=== PATIENT | male | born 1995 | race Caucasian/White ===

== ENCOUNTER 2019-12-13 11:03 | Emergency (ER) | payer OTHER ==
[2019-12-13] MEDS ORDERED: TYLENOL 325 MG PO STA (11:30)
[2019-12-13] MEDS ORDERED: TYLENOL 325 MG ONE (11:34)
[2019-12-13 11:38] VITALS: O2SAT 98
--- NOTE | 2019-12-13 11:38 | ERPHSYRPT ---
- History of Present Illness Time Seen by Provider: 12/13/19 11:20 Source: patient, police Exam Limitations: no limitations Patient Subjective Stated Complaint: pt here for a seizure at the halfway, he states last seizure was a month ago and he has never seen a doc for hes seizures , pt co pain to head, which he stated happend before the seizure, he gets fregquent headaches, Triage Nursing Assessment: pt alert and oreinted , resp easy, skin w/d/p.moves all ext well, no edema, he states he is fine and wants to go back to halfway Physician History: 24 y/o white male resident in local halfway with h/o untreated seizures, presents with second seizure in a month. pt denies illicit drug intake, denies acute head trauma. pt denies loss of bowel or bladder control Timing/Duration: today Severity: mild Character of Deficits: none Deficits: no difficulties Baseline/Normal Cognition: alert 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 Current Cognition: alert 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 Baseline Gait: walks w/o assistance Associated Symptoms: seizures Allergies/Adverse Reactions: No Known Drug Allergies Allergy (Unverified 12/13/19 11:11) Hx Influenza Vaccination/Date Given: No Hx Pneumococcal Vaccination/Date Given: No Immunizations Up to Date: Yes - Review of Systems Constitutional: No Symptoms Eyes: No Symptoms Ears, Nose, & Throat: No Symptoms Respiratory: No Symptoms Cardiac: No Symptoms Abdominal/Gastrointestinal: No Symptoms Genitourinary Symptoms: No Symptoms Musculoskeletal: No Symptoms Skin: No Symptoms Neurological: Headache, Seizure Psychological: No Symptoms Endocrine: No Symptoms Hematologic/Lymphatic: No Symptoms Immunological/Allergic: No Symptoms All Other Systems: Reviewed and Negative - Past Medical History Pertinent Past Medical History: Yes Neurological History: Seizures ENT History: No Pertinent History Cardiac History: No Pertinent History Respiratory History: No Pertinent History Endocrine Medical History: No Pertinent History Musculoskeletal History: No Pertinent History GI Medical History: No Pertinent History History: No Pertinent History Psycho-Social History: No Pertinent History Male Reproductive Disorders: No Pertinent History - Past Surgical History Past Surgical History: No Neuro Surgical History: No Pertinent History Cardiac: No Pertinent History Respiratory: No Pertinent History Gastrointestinal: No Pertinent History Genitourinary: No Pertinent History Musculoskeletal: No Pertinent History Male Surgical History: No Pertinent History - Social History Smoking Status: Current every day smoker Exposure to second hand smoke: Yes Drug Use: none Patient Lives Alone: No - Nursing Vital Signs Nursing Vital Signs: Initial Vital Signs Temperature 98.2 F 12/13/19 11:04 Pulse Rate 101 H 12/13/19 11:04 Respiratory Rate 16 12/13/19 11:04 Blood Pressure 130/94 12/13/19 11:04 O2 Sat by Pulse Oximetry 98 12/13/19 11:04 Pain Scale Pain Intensity 7 - Cord Coma Scale Best Eye Response (Cord): (4) open spontaneously Best Verbal Response (Claudia): (5) oriented Best Motor Response (Cord): (6) obeys commands Claudia Total: 15 - Physical Exam General Appearance: no apparent distress Eye Exam: bilateral eye: normal inspection, PERRL, EOMI Ears, Nose, Throat Exam: normal ENT inspection, TMs normal, moist mucous membranes Neck Exam: normal inspection, non-tender, supple, full range of motion Respiratory: normal breath sounds, lungs clear, airway intact, No chest tenderness, No respiratory distress Cardiovascular: regular rate/rhythm, normal heart sounds, normal peripheral pulses Gastrointestinal: soft, normal bowel sounds, No tenderness Rectal Exam: not done Back Exam: normal inspection, normal range of motion, No CVA tenderness, No vertebral tenderness Extremity Exam: normal inspection, normal range of motion, pelvis stable 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, 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, 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 Exam: normal hearing, normal speech, PERRL Coordination/Gait: normal finger to nose, normal gait, normal cerebellar function Motor/Sensory: no motor deficit, no sensory deficit, no pronator drift Skin Exam: normal color, warm, dry SpO2 Interpretation: normal SpO2: 98 O2 Delivery: Room Air - Course Nursing assessment & vital signs reviewed: Yes EKG Interpreted by Me: RATE ([id number]), Sinus Rhythm, NORMAL AXIS, NORMAL INTERVALS, NORMAL QRS Ordered Tests: Active Orders 24 hr Category Date Time Status Getter Operator STAT Care 12/13/19 11:30 Active Clean Catch Urine Specimen STAT Care 12/13/19 11:28 Active IV Insertion STAT Care 12/13/19 11:28 Active Pulse Oximetry (ED) STAT Care 12/13/19 11:28 Active HEAD WITHOUT CONTRAST [CT] Stat Exams 12/13/19 11:29 Completed CBC W DIFF Stat Lab 12/13/19 12:00 Completed CMP Stat Lab 12/13/19 12:00 Completed UA W/RFX UR CULTURE Stat Lab 12/13/19 11:59 Completed Urine Triage Profile Stat Lab 12/13/19 11:59 Completed Medication Summary Discontinued Medications Generic Name Dose Route Start Last Admin Trade Name Bryan PRN Reason Stop Dose Admin Acetaminophen 650 mg 12/13/19 11:30 12/13/19 11:35 Tylenol 325 Mg PO 12/13/19 11:31 650 mg STAT STA Administration Acetaminophen Confirm 12/13/19 11:34 Tylenol 325 Mg Administered 12/13/19 11:35 Dose 650 mg .ROUTE .STK-MED ONE Lab/Rad Data: Laboratory Result Diagrams 12/13/19 12:00 12/13/19 12:00 Laboratory Results 12/13/19 12/13/19 12/13/19 Range/Units 12:00 12:00 11:59 WBC 8.5 (4.0-10.5) K/mm3 RBC 4.84 (4.1-5.6) M/mm3 Hgb 15.4 (12.5-18.0) gm/dl Hct 43.8 (42-50) % MCV 90.5 (78-100) fl MCH 31.8 (26-32) pg MCHC 35.2 (32-36) g/dl RDW 12.2 (11.5-14.0) % Plt Count 225 (150-450) K/mm3 MPV 9.9 (7.5-11.0) fl Gran % 70.7 H (36.0-66.0) % Eos # (Auto) 0.04 (0-0.5) Absolute Lymphs (auto) 1.88 (1.0-4.6) Absolute Monos (auto) 0.54 (0.0-1.3) Lymphocytes % 22.1 L (24.0-44.0) % Monocytes % 6.3 (0.0-12.0) % Eosinophils % 0.5 (0.00-5.0) % Basophils % 0.4 (0.0-0.4) % Absolute Granulocytes 6.02 (1.4-6.9) Basophils # 0.03 (0-0.4) Sodium 141 (137-145) mmol/L Potassium 4.4 (3.5-5.1) mmol/L Chloride 103 (98-107) mmol/L Carbon Dioxide 26 (22-30) mmol/L Anion Gap 16.6 H (5-15) MEQ/L BUN 12 (9-20) mg/dL Creatinine 0.96 (0.66-1.25) mg/dL Estimated GFR > 60.0 ML/MIN Glucose 98 (74-106) mg/dL Calcium 9.4 (8.4-10.2) mg/dL Total Bilirubin 0.70 (0.2-1.3) mg/dL AST 26 (17-59) U/L ALT 22 (0-50) U/L Alkaline Phosphatase 49 (38-126) U/L Serum Total Protein 8.2 (6.3-8.2) g/dL Albumin 4.7 (3.5-5.0) g/dL Urine Color (YELLOW) Urine Appearance (CLEAR) Urine pH (5-6) Ur Specific [place] (1.005-1.025) Urine Protein (Negative) Urine Ketones (NEGATIVE) Urine Blood (0-5) Blane/ul Urine Nitrite (NEGATIVE) Urine Bilirubin (NEGATIVE) Urine Urobilinogen (0-1) mg/dL Ur Leukocyte Esterase (NEGATIVE) Urine WBC (Auto) (0-5) /HPF Urine RBC (Auto) (0-2) /HPF U Epithel Cells (Auto) (FEW) /HPF Urine Bacteria (Auto) (NEGATIVE) /HPF Urine Mucus (Auto) (NEGATIVE) /HPF Urine Culture Reflexed (NO) Urine Glucose (NEGATIVE) mg/dL Urine Opiates Level NEGATIVE (NEGATIVE) Ur Methadone NEGATIVE (NEGATIVE) Urine Barbiturates NEGATIVE (NEGATIVE) Ur Phencyclidine (PCP) NEGATIVE (NEGATIVE) Urine Amphetamine NEGATIVE (NEGATIVE) U Benzodiazepine Level NEGATIVE (NEGATIVE) Urine Cocaine NEGATIVE (NEGATIVE) Urine Marijuana (THC) NEGATIVE (NEGATIVE) 12/13/19 Range/Units 11:59 WBC (4.0-10.5) K/mm3 RBC (4.1-5.6) M/mm3 Hgb (12.5-18.0) gm/dl Hct (42-50) % MCV (78-100) fl MCH (26-32) pg MCHC (32-36) g/dl RDW (11.5-14.0) % Plt Count (150-450) K/mm3 MPV (7.5-11.0) fl Gran % (36.0-66.0) % Eos # (Auto) (0-0.5) Absolute Lymphs (auto) (1.0-4.6) Absolute Monos (auto) (0.0-1.3) Lymphocytes % (24.0-44.0) % Monocytes % (0.0-12.0) % Eosinophils % (0.00-5.0) % Basophils % (0.0-0.4) % Absolute Granulocytes (1.4-6.9) Basophils # (0-0.4) Sodium (137-145) mmol/L Potassium (3.5-5.1) mmol/L Chloride (98-107) mmol/L Carbon Dioxide (22-30) mmol/L Anion Gap (5-15) MEQ/L BUN (9-20) mg/dL Creatinine (0.66-1.25) mg/dL Estimated GFR ML/MIN Glucose (74-106) mg/dL Calcium (8.4-10.2) mg/dL Total Bilirubin (0.2-1.3) mg/dL AST (17-59) U/L ALT (0-50) U/L Alkaline Phosphatase (38-126) U/L Serum Total Protein (6.3-8.2) g/dL Albumin (3.5-5.0) g/dL Urine Color YELLOW (YELLOW) Urine Appearance CLEAR (CLEAR) Urine pH 7.0 (5-6) Ur Specific [place] 1.016 (1.005-1.025) Urine Protein NEGATIVE (Negative) Urine Ketones NEGATIVE (NEGATIVE) Urine Blood NEGATIVE (0-5) Blane/ul Urine Nitrite NEGATIVE (NEGATIVE) Urine Bilirubin NEGATIVE (NEGATIVE) Urine Urobilinogen NEGATIVE (0-1) mg/dL Ur Leukocyte Esterase NEGATIVE (NEGATIVE) Urine WBC (Auto) 0-2 (0-5) /HPF Urine RBC (Auto) NONE (0-2) /HPF U Epithel Cells (Auto) NONE (FEW) /HPF Urine Bacteria (Auto) NONE (NEGATIVE) /HPF Urine Mucus (Auto) SLIGHT (NEGATIVE) /HPF Urine Culture Reflexed NO (NO) Urine Glucose NEGATIVE (NEGATIVE) mg/dL Urine Opiates Level (NEGATIVE) Ur Methadone (NEGATIVE) Urine Barbiturates (NEGATIVE) Ur Phencyclidine (PCP) (NEGATIVE) Urine Amphetamine (NEGATIVE) U Benzodiazepine Level (NEGATIVE) Urine Cocaine (NEGATIVE) Urine Marijuana (THC) (NEGATIVE) - Progress Progress: improved Progress Note: 12/13/19 13:12 ct head-wnl no acute intracranial process Counseled pt/family regarding: lab results, diagnosis, need for follow-up, rad results - Departure Departure Disposition: Intermediate/Snf Clinical Impression: Seizure Condition: Stable Critical Care Time: No Additional Instructions: follow up with primary doctor and neurologist for further management Prescriptions: Phenytoin Sod Extended 100 mg* [Dilantin 100 MG] 100 mg PO TID #30 capsule
[2019-12-13 12:03] VITALS: BP 131/94; PULSE 97
[2019-12-13 12:07] LABS: Absolute Neutrophil Ct (ANC) 6.02 (1.4-6.9); BASOPHIL % 0.4 % (0.0-0.4); Basophil (Absolute #) 0.03 (0-0.4); Eosinophil % 0.5 % (0.00-5.0); Eosinophil (Absolute #) 0.04 (0-0.5); Hematocrit 43.8 % (42-50); Hemoglobin 15.4 gm/dl (12.5-18.0); Lymphocyte (Absolute #) 1.88 (1.0-4.6); Lymphocytes % 22.1 % (24.0-44.0); Mean Cell Volume 90.5 fl (78-100); Mean Corpuscular Hemoglobin 31.8 pg (26-32); Mean Corpuscular Hgb Concent. 35.2 g/dl (32-36); Mean Platelet Volume 9.9 fl (7.5-11.0); Monocyte (Absolute #) 0.54 (0.0-1.3); Monocytes % 6.3 % (0.0-12.0); Neutrophil % 70.7 % (36.0-66.0); Platelet Count 225 K/mm3 (150-450); Red Blood Count 4.84 M/mm3 (4.1-5.6); Red Cell Distribution Width 12.2 % (11.5-14.0); White Blood Count 8.5 K/mm3 (4.0-10.5)
[2019-12-13 12:16] LABS: ALBUMIN 4.7 g/dL (3.5-5.0); ALKALINE PHOSPHATASE 49 U/L (38-126); ANION GAP 16.6 MEQ/L (5-15); BLOOD UREA NITROGEN 12 mg/dL (9-20); CHLORIDE 103 mmol/L (98-107); Calcium 9.4 mg/dL (8.4-10.2); Carbon Dioxide 26 mmol/L (22-30); Creatinine 1 0.96 mg/dL (0.66-1.25); Glucose 98 mg/dL (74-106); Potassium 4.4 mmol/L (3.5-5.1); SGOT/AST 26 U/L (17-59); SGPT/ALT 22 U/L (0-50); SODIUM 141 mmol/L (137-145); Total Protein 8.2 g/dL (6.3-8.2)
[2019-12-13 12:23] LABS: Appearance CLEAR (CLEAR); Bilirubin NEGATIVE (NEGATIVE); Blood NEGATIVE Ery/ul (0-5); Glucose NEGATIVE (NEGATIVE); Ketones NEGATIVE (NEGATIVE); Leukocyte Esterase NEGATIVE (NEGATIVE); Mucus SLIGHT /HPF (NEGATIVE); Nitrite NEGATIVE (NEGATIVE); Protein,Urine Dip NEGATIVE (Negative); Specific Gravity 1.016 (1.005-1.025); Urobilinogen NEGATIVE mg/dL (0-1); WBC 0-2 /HPF (0-5)
--- NOTE | 2019-12-13 12:24 | XRAY ---
Indication: Headache. Seizures. Multiple contiguous axial images obtained through the head without contrast. Comparison: None Normal appearing brain parenchyma, ventricles, and bony calvarium. Visualized paranasal sinuses and mastoid air cells are clear. Impression: Normal CT head without contrast exam.
[2019-12-13 12:36] LABS: Amphetamine,Urine NEGATIVE (NEGATIVE); Barbiturate,Urine NEGATIVE (NEGATIVE); Benzodiazepine,Urine NEGATIVE (NEGATIVE); Cocaine,Urine NEGATIVE (NEGATIVE); Methadone,Urine NEGATIVE (NEGATIVE); Opiate,Urine NEGATIVE (NEGATIVE); PCP,Urine NEGATIVE (NEGATIVE); THC,Urine NEGATIVE (NEGATIVE)
[2019-12-13] MEDS ORDERED: DILANTIN IV 250 MG/5 ML*** 1,000 MG in Sodium Chloride 0.9% 100 ML IVPB 100 ML IV ONE (13:17)
[2019-12-13] MEDS ORDERED: Ativan 0.5 MG PO ONE (13:59)
[2019-12-13] MEDS ORDERED: Ativan 1 MG ONE (14:03)
== END 2019-12-13 14:10 | disposition home or self-care (01) ==
LOC: ED 11:03
DX: R56.9 Unspecified convulsions (principal)
CPT/HCPCS: 36415; 70450; 80053; 80307; 81001; 85025; 93041; 94760; 96365; 99284; J1165; A9270-GY

== ENCOUNTER 2021-08-13 18:14 | Emergency (ER) | payer OTHER ==
[2021-08-13 19:17] LABS: Hematocrit 41.8 % (42-50); Hemoglobin 13.6 gm/dl (12.5-18.0); Mean Cell Volume 96.5 fl (78-100); Mean Corpuscular Hemoglobin 31.4 pg (26-32); Mean Corpuscular Hgb Concent. 32.5 g/dl (32-36); Mean Platelet Volume 9.4 fl (7.5-11.0); Platelet Count 250 K/mm3 (150-450); Red Blood Count 4.33 M/mm3 (4.1-5.6); Red Cell Distribution Width 13.3 % (11.5-14.0); White Blood Count 7.3 K/mm3 (4.0-10.5)
[2021-08-13 19:27] LABS: Appearance CLEAR (CLEAR); Bilirubin NEGATIVE (NEGATIVE); Blood NEGATIVE Ery/ul (0-5); Glucose NEGATIVE (NEGATIVE); Ketones NEGATIVE (NEGATIVE); Leukocyte Esterase NEGATIVE (NEGATIVE); Mucus SLIGHT /HPF (NEGATIVE); Nitrite NEGATIVE (NEGATIVE); Protein,Urine Dip NEGATIVE (Negative); Urobilinogen 2 mg/dL (0-1)
[2021-08-13 19:28] LABS: ACETAMINOPHEN < 10 ug/ml (10-30); ALKALINE PHOSPHATASE 43 U/L (38-126); ANION GAP 13.3 MEQ/L (5-15); BLOOD UREA NITROGEN 13 mg/dL (9-20); CHLORIDE 104 mmol/L (98-107); Calcium 8.9 mg/dL (8.4-10.2); Carbon Dioxide 26 mmol/L (22-30); EST GLOMERULAR FILTRATION RATE > 60.0 ML/MIN; ETHYL ALCOHOL < 10 mg/dL (0-10); Glucose 100 mg/dL (74-106); Potassium 3.7 mmol/L (3.5-5.1); SALICYLATE < 1.0 mg/dL (2-20); SGOT/AST 37 U/L (17-59); SGPT/ALT 30 U/L (0-50); SODIUM 140 mmol/L (137-145); Total Protein 6.7 g/dL (6.3-8.2)
[2021-08-13 19:29] LABS: Bacteria NONE SEEN /HPF (NEGATIVE)
[2021-08-13 19:33] LABS: Eosinophil % 0.7 % (0.00-5.0); Lymphocytes % 27.3 % (24.0-44.0); Neutrophil % 61.9 % (36.0-66.0)
[2021-08-13 19:34] LABS: Absolute Neutrophil Ct (ANC) 4.54 (1.4-6.9); BASOPHIL % 0.1 % (0.0-0.4); Basophil (Absolute #) 0.01 (0-0.4); Eosinophil (Absolute #) 0.05 (0-0.5); Monocyte (Absolute #) 0.73 (0.0-1.3)
[2021-08-13] MEDS ORDERED: Dilantin 100 MG PO ONE (19:38)
[2021-08-13 19:41] LABS: Barbiturate,Urine NEGATIVE (NEGATIVE); Benzodiazepine,Urine NEGATIVE (NEGATIVE); Cocaine,Urine NEGATIVE (NEGATIVE); Methadone,Urine NEGATIVE (NEGATIVE); Opiate,Urine NEGATIVE (NEGATIVE); PCP,Urine NEGATIVE (NEGATIVE); THC,Urine NEGATIVE (NEGATIVE)
[2021-08-13 19:52] LABS: INR 0.96 (0.8-3.0); PROTIME 11.3 SECONDS (9.4-12.5)
[2021-08-13 19:55] LABS: PTT 34.2 SECONDS (25.1-36.5)
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
[2021-08-13 20:08] LABS: Amphetamine,Urine POSITIVE (NEGATIVE)
[2021-08-13 20:31] VITALS: BP 160/86; PULSE 60; O2SAT 99
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
--- NOTE | 2021-08-14 09:50 | XRAY ---
Exam: AP portable chest film from 08/13/2021. Comparison: None. Indication: 26-year-old male with altered mental status; seizure versus drug overdose. Findings: The heart size and contour are normal. The hipolito and mediastinal structures appear unremarkable. There is satisfactory inflation of the lungs. No air space infiltrates, vascular congestion, pneumothorax, or pleural effusion is seen. No acute osseous process is seen. Impression: 1. No infiltrates or other acute cardiopulmonary disease is seen.
== END 2021-08-13 20:32 | disposition home or self-care (01) ==
LOC: ED 18:14
DX: G40.909 Epilepsy, unspecified, not intractable, without status epilepticus (principal); Z79.899 Other long term (current) drug therapy
CPT/HCPCS: 36000; 36415; 70450; 71045; 80053; 80185; 80307; 81001; 83605; 84484; 85025; 85610; 85730; 99284; G0480; A9270-GY

== ENCOUNTER 2023-01-28 02:21 | Emergency (ER) | payer OTHER ==
[2023-01-28 03:30] VITALS: BP 131/81; O2SAT 100
--- NOTE | 2023-01-28 03:53 | ERPHSYRPT ---
- History of Present Illness Time Seen by Provider: 01/28/23 03:57 Source: patient Exam Limitations: no limitations Patient Subjective Stated Complaint: Pt reports "I donated plasma on and while doing so the machine slowed down, started alarming and my vein started swelling up. I noticed this morning about 0200 my arm is discolored, I mikaela a line around the discoloration and it started going outside the line and my fingertips are tingling." Triage Nursing Assessment: Pt alert and oriented x3. No apparent respiratory distress. Ambulated to ED cot without difficulty. Skin w/p/d. Skin around left antecubital extending into upper and lower arm has tenderness to touch/erythema. Radial pulse regular, strong, +3. Physician History: Patient is a 28-year-old male presents to our ED for evaluation of of discolor ation to the antecubital fossa and tenderness to the antecubital vein. Patient states he went to donate plasma on 5 days ago. Patient states the vein swelled up and the donation was discontinued. Patient was sent home. At approximately 2:00 this morning patient observed the area to be discolored. Patient became concerned and decided come to our ED for evaluation. No pain at rest. No fever. No chest pain or shortness of breath. No nausea vomiting or diaphoresis. Patient states he is healthy. Significant other at bedside. They voiced no other complaints or concerns at this time. Portions of this note were created with voice recognition technology. There may be grammatical, spelling, punctuation or sound alike errors Timing/Duration: today Severity: moderate Modifying Factors: Improves With: nothing Associated Symptoms: denies symptoms Allergies/Adverse Reactions: No Known Drug Allergies Allergy (Verified 01/28/23 02:30) Home Medications: No Reportable Medications [No Reported Medications] 01/28/23 [History] Hx Tetanus, Diphtheria Vaccination/Date Given: No Hx Influenza Vaccination/Date Given: No Hx Pneumococcal Vaccination/Date Given: No Travel Risk - International Travel Have you traveled outside of the country in past 3 weeks: No - Coronavirus Screening Are you exhibiting any of the following symptoms?: No Close contact with a COVID-19 positive Pt in past 14-21 Days: No - Vaccine Status Have you recieved a Covid-19 vaccination: No - Review of Systems Constitutional: No Symptoms, No Fever, No Chills Eyes: No Symptoms Ears, Nose, & Throat: No Symptoms Respiratory: No Symptoms, No Cough, No Dyspnea Cardiac: No Symptoms, No Chest Pain, No Edema, No Syncope Abdominal/Gastrointestinal: No Symptoms, No Abdominal Pain, No Nausea, No Vomiting, No Diarrhea Genitourinary Symptoms: No Symptoms, No Dysuria Musculoskeletal: No Symptoms, No Back Pain, No Neck Pain Skin: No Symptoms, No Rash Neurological: No Symptoms, No Dizziness, No Focal Weakness, No Sensory Changes Psychological: No Symptoms Endocrine: No Symptoms Hematologic/Lymphatic: No Symptoms Immunological/Allergic: No Symptoms All Other Systems: Reviewed and Negative - Past Medical History Pertinent Past Medical History: Yes Neurological History: Seizures ENT History: No Pertinent History Cardiac History: No Pertinent History Respiratory History: No Pertinent History Endocrine Medical History: No Pertinent History Musculoskeletal History: No Pertinent History GI Medical History: No Pertinent History History: No Pertinent History Psycho-Social History: No Pertinent History Male Reproductive Disorders: No Pertinent History - Past Surgical History Past Surgical History: Yes Neuro Surgical History: No Pertinent History Cardiac: No Pertinent History Respiratory: No Pertinent History Gastrointestinal: No Pertinent History Genitourinary: No Pertinent History Musculoskeletal: No Pertinent History Male Surgical History: No Pertinent History Other Surgical History: foreign body removed from esophagus - Social History Smoking Status: Current every day smoker How long have you smoked: years Exposure to second hand smoke: Yes Drug Use: none Patient Lives Alone: No - Nursing Vital Signs Nursing Vital Signs: Initial Vital Signs Temperature 97.6 F 01/28/23 02:30 Pulse Rate 90 01/28/23 02:30 Respiratory Rate 15 01/28/23 02:30 Blood Pressure 134/94 01/28/23 02:30 O2 Sat by Pulse Oximetry 99 01/28/23 02:30 Pain Scale Pain Intensity 2 - Physical Exam General Appearance: no apparent distress, alert Eye Exam: PERRL/EOMI, eyes nml inspection Ears, Nose, Throat Exam: normal ENT inspection, TMs normal, pharynx normal, moist mucous membranes Neck Exam: normal inspection, non-tender, supple, full range of motion Respiratory Exam: normal breath sounds, lungs clear, airway intact, No respiratory distress Cardiovascular Exam: regular rate/rhythm, normal heart sounds, normal peripheral pulses Gastrointestinal/Abdomen Exam: soft, normal bowel sounds, No tenderness, No mass Back Exam: normal inspection, normal range of motion, No CVA tenderness, No vertebral tenderness Extremity Exam: normal inspection, normal range of motion, pelvis stable, other (Resolving bruise at the venous site. Antecubital vein slightly tender. No swelling of the extremity. No signs of infection. No heat generation. No swelling. No lymphangitis. No lymphadenopathy. Temperature between both arms is the same. Compartments are soft. Cap refill less than 2 seconds), No lehman, No contusions (Resolving bruising at the end decubital fossa. No axillary lymphadenopathy), No tenderness Neurologic Exam: alert, 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, cooperative, normal mood/affect, nml cerebellar function, nml station & gait, sensation nml, No motor deficits Skin Exam: normal color, warm, dry, No rash Lymphatic Exam: No adenopathy SpO2 Interpretation: normal SpO2: 100 O2 Delivery: Room Air - Course Nursing assessment & vital signs reviewed: Yes - Progress Progress: improved Progress Note: 28-year-old male presents to our ED for evaluation of discoloration to the left antecubital fossa. Patient also has tenderness at the antecubital vein specifically the vein that was accessed for plasma donation. Physical exam reveals a resolving hematoma. Extremities neurovascular intact distally. There are no signs of infection. Patient appears to be experiencing a phlebitis. No indication for further work-up. No signs of a DVT. No upper extremity swelling. Patient advised to apply a warm pack to the area at least twice daily for approximately 20 minutes and a daily aspirin for the following week. Patient agrees to follow-up with his primary care doctor within 48 hours for reevaluation. Patient has no active pain at this time. No indication for pain medication. Patient understands that if symptoms worsen or if arm swells he is to return to our ED for reevaluation. Patient served as an independent historian. Portions of this note were created with voice recognition technology. There may be grammatical, spelling, punctuation or sound alike errors Complexity of problems addressed is low. Acute uncomplicated. Complexity of data reviewed and analyzed is none. No specialized testing ordered. Diagnosis was made based on history and physical exam. Risk of complication and/or morbidity/mortality of patient management is minimal. Patient discharged home. He agrees to follow-up with his primary care doctor within 48 hours for reevaluation. Patient states he does not have a primary care at the moment so patient was assigned to our service Dr. Fredi Allen. Significant other at bedside. They voiced no other complaints or concerns at this time. 01/28/23 04:04 Counseled pt/family regarding: diagnosis, need for follow-up, rad results - Departure Departure Disposition: Home Clinical Impression: Phlebitis Condition: Stable Critical Care Time: No Referrals: DOCTOR,NO FAMILY [Primary Care Provider] - Follow up/PCP as directed MALI METCALF [ACTIVE STAFF] - Follow up/PCP as directed Additional Instructions: Discharge/Care Plan LAURY PLAZA was seen on 01/28/23 in the Emergency Room. The patient was counseled regarding Diagnosis,Lab results, Imaging studies, need for follow up and when to return to the Emergency Room. Prescriptions given: Discharge Note I have spoken with the patient and/or caregivers. I have explained the patient's condition, diagnosis and treatment plan based on the information available to me at this time. I have answered the patient's and/or caregiver's questions and addressed any concerns. The patient and/or caregivers have as good understanding of the patient's diagnosis, condition and treatment plan as can be expected at this point. The vital signs have been stable. The patient's condition is stable and appropriate for discharge from the emergency department. The patient will pursue further outpatient evaluation with the primary care physician or other designated or consulting physician as outlined in the discharge instructions. The patient and/or caregivers are agreeable to this plan of care and follow-up instructions have been explained in detail. The patient and/or caregivers have received these instruction. The patient/and or caregivers are aware that any significant change in condition or worsening of symptoms should prompt an immediate return to this or the closest emergency department or call 911.
[2023-01-28 03:59] VITALS: PULSE 70
== END 2023-01-28 03:59 | disposition home or self-care (01) ==
LOC: ED 02:21
DX: T81.72XA Complication of vein following a procedure, not elsewhere classified, initial encounter (principal); I80.8 Phlebitis and thrombophlebitis of other sites; Z28.310 Unvaccinated for COVID-19; Z72.0 Tobacco use
CPT/HCPCS: 99281

== ENCOUNTER 2024-06-25 20:46 | Emergency (ER) | payer OTHER ==
[2024-06-25 21:24] VITALS: PULSE 111; RESP 16; TEMP 97.6
--- NOTE | 2024-06-25 21:49 | ERPHSYRPT ---
- History of Present Illness Time Seen by Provider: 06/25/24 21:15 Source: patient, family, EMS Exam Limitations: no limitations Patient Subjective Stated Complaint: pt states he had a bulb fall on his head from approx 20 feet, denies loss of consciousness. Triage Nursing Assessment: pt alert and oriented, answers questions approp. pt ambualtes into room with steady gait noted. respirations nonlabored. skin warm and dry. abrasions noted to top and rt side of head with minimal active bleeding noted. pupils equal and reactive. pt moves extremities withoutdiff Physician History: Pt came in to ER and has had earlier scan at another ER for head injury today. No LOC reported. Negative CT rad reading there and Cpsine read without Fx. and Tet reported UTD. He has headache increased so came in for recheck. Fundi benign PERRLA, visual collier intact. No neuro deficits and normal gait and coord. some debris may be in wounds and I advised the pt that we will try to get these out and treat headache , but he did not wish to stay and left during this treatment, although we expressed concern that there could be additional progressing pathology for us to work up which could result in complications he and friend/family have the capacity to make this choice. there was normal mental status. Occurred: this morning Severity: moderate Head Injury Location: occipital, parietal Method of Injury: direct blow Loss of Consciousness: no loss of consciousness Associated Symptoms: headaches Allergies/Adverse Reactions: No Known Drug Allergies Allergy (Verified 06/25/24 21:46) Home Medications: No Reportable Medications [No Reported Medications] 01/28/23 [History] Hx Tetanus, Diphtheria Vaccination/Date Given: Yes (2023) Hx Influenza Vaccination/Date Given: No Hx Pneumococcal Vaccination/Date Given: No Immunizations Up to Date: Yes Travel Risk - International Travel Have you traveled outside of the country in past 3 weeks: No - Emerging Infectious Disease Are you exhibiting symptoms associated with any current EIDs: No - Review of Systems Constitutional: No Fever, No Chills Eyes: No Symptoms Ears, Nose, & Throat: No Symptoms Respiratory: No Cough, No Dyspnea Cardiac: No Chest Pain, No Edema, No Syncope Abdominal/Gastrointestinal: No Abdominal Pain, No Nausea, No Vomiting, No Diarrhea Genitourinary Symptoms: No Dysuria Musculoskeletal: No Back Pain, No Neck Pain Skin: Other (lac without active bleeding), No Rash Neurological: No Dizziness, No Focal Weakness, No Sensory Changes Psychological: No Symptoms Endocrine: No Symptoms Hematologic/Lymphatic: No Symptoms Immunological/Allergic: No Symptoms All Other Systems: Reviewed and Negative - Past Medical History Pertinent Past Medical History: Yes Neurological History: Seizures ENT History: No Pertinent History Cardiac History: No Pertinent History Respiratory History: No Pertinent History Endocrine Medical History: No Pertinent History Musculoskeletal History: No Pertinent History GI Medical History: No Pertinent History History: No Pertinent History Psycho-Social History: No Pertinent History Male Reproductive Disorders: No Pertinent History - Past Surgical History Past Surgical History: Yes Neuro Surgical History: No Pertinent History Cardiac: No Pertinent History Respiratory: No Pertinent History Gastrointestinal: No Pertinent History Genitourinary: No Pertinent History Musculoskeletal: No Pertinent History Male Surgical History: No Pertinent History Other Surgical History: foreign body removed from esophagus - Social History Smoking Status: Current every day smoker How long have you smoked: 20yrs Exposure to second hand smoke: Yes Drug Use: none Patient Lives Alone: No - Social Determinants of Health Will the patient participate in the screening: Declined to provide - Nursing Vital Signs Nursing Vital Signs: Initial Vital Signs Temperature 97.6 F 06/25/24 21:04 Pulse Rate 111 H 06/25/24 21:04 Respiratory Rate 16 06/25/24 21:04 Blood Pressure 159/97 06/25/24 21:04 O2 Sat by Pulse Oximetry 99 06/25/24 21:04 Pain Scale Pain Intensity 6 - [place] Coma Score Best Eye Response (Claudia): (4) open spontaneously Best Verbal Response (Claudia): (5) oriented Best Motor Response ([place]): (6) obeys commands Claudia Total: 15 - Physical Exam General Appearance: no apparent distress, alert Eye Exam: bilateral eye: PERRL, EOMI ENT Exam: airway nml, No dental injury Neck Exam: supple, trachea midline, full range of motion, normal alignment, normal inspection Cardiovascular/Respiratory Exam: chest non-tender, normal breath sounds, regular rate/rhythm Gastrointestinal/Abdominal Exam: soft, non tender, no distention Back Exam: normal inspection, No vertebral tenderness Extremity Exam: non-tender, normal range of motion, normal inspection Mental Status Exam: alert, 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, cooperative Motor/Sensory Exam: no motor deficit, no sensory deficit, CN II-XII intact DTR Exam: bicep (R): 2+, bicep (L): 2+, tricep (R): 2+, tricep (L): 2+, knee (R): 2+, knee (L): 2+, ankle (R): 2+, ankle (L): 2+ Skin Exam: normal color, warm, dry, No rash SpO2 Interpretation: normal SpO2: 99 O2 Delivery: Room Air - Course Nursing assessment & vital signs reviewed: Yes Ordered Tests: Active Orders 24 hr Category Date Time Status AMA [Release AMA] OM.NOW Care 06/25/24 22:33 Completed - Progress Progress: improved, re-examined Counseled pt/family regarding: diagnosis, need for follow-up Medical Desision Making - Independent Historian Additional History obtained from: Family - Discussion of managment Reviewed:: Test results, Need for additional workup Agreed on:: Treatment plan, need for follow-up - Diagnostic Testing Diagnostic test were ordered, analyzed, and reviewed by me: No - Risk of complications The pt has a mod risk of morbidity or mortality based on: Need for prescription drug management - Departure Departure Disposition: AMA Clinical Impression: head injury with increased symptoms Condition: Good Critical Care Time: No Referrals: DOCTOR,NO FAMILY [Primary Care Provider] - Follow up/PCP as directed Instructions: Concussion, Adult (DC), Head Injury in Adults (DC) Additional Instructions: pt left prior to completion of treatment/evaluation - and expressed that he did not wish to stay for further eval or treatment at this time. He was told that we would like to try and help him and relieve his symptoms and could return anytime and to f/u BP with PMDs also.
[2024-06-25 22:40] VITALS: BP 155/98
[2024-06-25 22:49] VITALS: O2SAT 99
== END 2024-06-25 22:41 | disposition left against medical advice (07) ==
LOC: ED 20:46
DX: S09.90XA Unspecified injury of head, initial encounter (principal); W20.8XXA Other cause of strike by thrown, projected or falling object, initial encounter; R51.9 Headache, unspecified; Z72.0 Tobacco use
CPT/HCPCS: 99281

== ENCOUNTER 2024-12-23 01:01 | Emergency (ER) | payer OTHER | END 2024-12-23 01:15 | disposition left against medical advice (07) | LOC: ED 01:01 | DX: Z53.21 Procedure and treatment not carried out due to patient leaving prior to being seen by health care provider (principal) ==

== ENCOUNTER 2025-06-21 14:24 | Emergency (ER) | payer OTHER ==
[2025-06-21 15:11] VITALS: RESP 16; O2SAT 99
--- NOTE | 2025-06-21 15:18 | ERPHSYRPT ---
- History of Present Illness Time Seen by Provider: 06/21/25 14:36 Source: patient Exam Limitations: no limitations Patient Subjective Stated Complaint: pt stated that starting yesterday he has had right upper tooth pain and swelling to that side of his face as well Triage Nursing Assessment: pt is alert/oriented, vitals stable, mild swelling to upper lip Physician History: 30-year-old male with history of multiple broken teeth, dental caries, periodontal disease presented in the ER with right upper canine and premolar area pain and swelling with broken teeth. Patient reports pain radiating to the right eye. Moderate to severe sharp throbbing. No fever or chills reported. Allergies/Adverse Reactions: No Known Drug Allergies Allergy (Verified 04/23/25 00:56) Hx Tetanus, Diphtheria Vaccination/Date Given: Yes (2023) Hx Influenza Vaccination/Date Given: No Hx Pneumococcal Vaccination/Date Given: No Travel Risk - International Travel Have you traveled outside of the country in past 3 weeks: No - Emerging Infectious Disease Are you exhibiting symptoms associated with any current EIDs: No - Review of Systems Constitutional: No Symptoms Eyes: No Symptoms Ears, Nose, & Throat: Loose Teeth Respiratory: No Symptoms Cardiac: No Symptoms Skin: No Symptoms Neurological: No Symptoms - Past Medical History Pertinent Past Medical History: Yes Neurological History: Seizures ENT History: No Pertinent History Cardiac History: No Pertinent History Respiratory History: No Pertinent History Endocrine Medical History: No Pertinent History Musculoskeletal History: No Pertinent History GI Medical History: No Pertinent History History: No Pertinent History Psycho-Social History: No Pertinent History Male Reproductive Disorders: No Pertinent History - Past Surgical History Past Surgical History: Yes Neuro Surgical History: No Pertinent History Cardiac: No Pertinent History Respiratory: No Pertinent History Gastrointestinal: No Pertinent History Genitourinary: No Pertinent History Musculoskeletal: No Pertinent History Male Surgical History: No Pertinent History Other Surgical History: foreign body removed from esophagus - Social History Smoking Status: Current every day smoker How long have you smoked: 20yrs Exposure to second hand smoke: Yes - Social Determinants of Health Will the patient participate in the screening: Declined to provide - Nursing Vital Signs Nursing Vital Signs: Initial Vital Signs Temperature 97.1 F 06/21/25 14:57 Pulse Rate 77 06/21/25 14:57 Respiratory Rate 16 06/21/25 14:57 Blood Pressure 155/95 06/21/25 14:57 O2 Sat by Pulse Oximetry 99 06/21/25 14:57 Pain Scale Pain Intensity 10 - Physical Exam General Appearance: no apparent distress Nasal Exam: normal inspection Throat Exam: pharynx normal, dental tenderness (Broken teeth with caries and periodontal disease. Minimal gingival swelling right upper with no fluctuation. Moderate tenderness) Neck Exam: normal inspection, non-tender, supple, full range of motion Cardiovascular/Respiratory Exam: normal breath sounds, regular rate/rhythm Neurologic Exam: alert, 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, cooperative, mill tender warm up II-XII nml as tested Skin Exam: normal color SpO2 Interpretation: normal SpO2: 99 O2 Delivery: Room Air Ordered Tests: Medication Summary Discontinued Medications Generic Name Dose Route Start Last Admin Trade Name Freq PRN Reason Stop Dose Admin Al Hydrox/Mg Hydrox/Simethicone 30 ml 06/21/25 15:11 Mag Hydrox/Al Hydrox/Simeth 30 Ml Udcup MM 06/21/25 15:12 STAT ONE Amoxicillin/Clavulanate Potassium 875 mg 06/21/25 15:09 Amox Tr/Potassium Clavulanate 875 Mg Tablet PO 06/21/25 15:10 STAT ONE Benzocaine/Butamben/Tetracaine HCl 5 spray 06/21/25 15:11 Tetracaine/Benzocaine/Butamben 1 [place] MM 06/21/25 15:12 ONCE ONE Ketorolac Tromethamine 30 mg 06/21/25 15:09 Ketorolac Tromethamine 30 Mg/Ml Inj IM 06/21/25 15:10 STAT ONE Lidocaine HCl 30 ml 06/21/25 15:11 Lidocaine Hcl 2% Viscous 15 Ml Udcup MM 06/21/25 15:12 STAT ONE - Progress Progress: pain not gone completely Progress Note: 06/21/25 15:15 Differential diagnosis: Dental caries, exposed nerve, dental abscess, broken teeth 30-year-old is evaluated in the ER for right upper jaw/tooth ache. Patient has minimal gingival tenderness. Has multiple broken teeth and dental caries. I do not think patient has abscess but definitely have some infection, given Toradol and dental balls for symptomatic relief and started on Augmentin. Outpatient dental follow-up recommended Complexity of problems addressed: Moderate acute Complexity of data reviewed/analyzed: Limited Risk of complication: Mild to moderate Counseled pt/family regarding: diagnosis, need for follow-up Medical Desision Making - Diagnostic Testing Diagnostic test were ordered, analyzed, and reviewed by me: No - Risk of complications The pt has a mod risk of morbidity or mortality based on: Need for prescription drug management - Departure Departure Disposition: Home Clinical Impression: Dental infection Condition: Stable Critical Care Time: No Referrals: DOCTOR,NO FAMILY [Primary Care Provider, UNKNOWN] - Follow up with PCP 1 day Instructions: Tooth Abscess (DC) Additional Instructions: Take Tylenol/ibuprofen as needed. Follow-up with your primary care and dentist for reevaluation. Return to ER for worsening. Prescriptions: Ibuprofen 600 mg PO Q6HPRN PRN 10 Days #20 tablet PRN Reason: Pain Amox Tr/Potass Clav. 875 mg [Augmentin 875-125 Tablet] 875 mg PO BID #14 tablet
[2025-06-21] MEDS ORDERED: Augmentin 875-125 Tablet ONE (15:20)
[2025-06-21] MEDS ORDERED: TORAdol 30 mg Injection ONE (15:20)
[2025-06-21] MEDS ORDERED: MAALOX ES 30 ML UNIT DOSE ONE (15:21)
[2025-06-21] MEDS ORDERED: XYLOCAINE VISCOUS 2% 15 ML CUP ONE ×2 (15:21→15:24)
[2025-06-21] MEDS ORDERED: CETACAINE SPRAY ONE (15:21)
[2025-06-21] MEDS: XYLOCAINE VISCOUS 2% 15 ML CUP MM ONE (15:23)
[2025-06-21] MEDS: MAALOX ES 30 ML UNIT DOSE MM ONE (15:24)
[2025-06-21] MEDS: CETACAINE SPRAY MM ONE (15:25)
[2025-06-21] MEDS: Augmentin 875-125 Tablet PO ONE (15:25)
[2025-06-21] MEDS: TORAdol 30 mg Injection IM ONE (15:25)
[2025-06-21 15:51] VITALS: BP 128/76; PULSE 84; TEMP 97.2
== END 2025-06-21 15:52 | disposition home or self-care (01) ==
LOC: ED 14:24
DX: K04.7 Periapical abscess without sinus (principal); K08.89 Other specified disorders of teeth and supporting structures; Z79.899 Other long term (current) drug therapy; Z72.0 Tobacco use

== ENCOUNTER 2025-09-21 11:22 | Emergency (ER) | payer OTHER ==
[2025-09-21 11:33] VITALS: RESP 18; TEMP 96.9
--- NOTE | 2025-09-21 11:55 | ERPHSYRPT ---
- History of Present Illness Time Seen by Provider: 09/21/25 11:40 Source: patient, family Exam Limitations: no limitations Patient Subjective Stated Complaint: pt here for pain to right lower jaw for a couple days now, he states he has multi dental caries, he also reports he ran a low grade fever today Triage Nursing Assessment: pt alert, walked in, resp easy, skin w/d/p. moves all ext well, has multi dental caries and broken teeth Physician History: This is a thin 30-year-old white male patient who arrives to the emergency department accompanied by family with out a primary care provider with a complaint of right lower jaw pain and dental pain that has been present for 3 days. Patient had a low-grade fever this morning. Patient arrives to the emergency department with resolution of his fever without any intervention prior to arrival from home. He has no difficulty swallowing or speaking. Chewing worsens his pain. Patient states he takes no medications chronically and he has no known drug allergies. Timing/Duration: gradual onset, days (3) Severity: mild ENT Location: dental (Right side incisor) Prearrival Treatment: no prearrival treatment Modifying Factors: Improves With: other (Chewing worsens pain) Associated Symptoms: jaw pain (Right lower jaw), tooth pain (Right lower tooth pain), No sore throat, No difficulty swallowing, No voice change Allergies/Adverse Reactions: No Known Drug Allergies Allergy (Verified 09/21/25 11:29) Hx Tetanus, Diphtheria Vaccination/Date Given: No Hx Influenza Vaccination/Date Given: No Hx Pneumococcal Vaccination/Date Given: No Immunizations Up to Date: Yes Travel Risk - International Travel Have you traveled outside of the country in past 3 weeks: No - Emerging Infectious Disease Are you exhibiting symptoms associated with any current EIDs: No - Review of Systems Constitutional: No Symptoms Eyes: No Symptoms Ears, Nose, & Throat: Other (Dental pain) Respiratory: No Symptoms Cardiac: No Symptoms Abdominal/Gastrointestinal: No Symptoms Genitourinary Symptoms: No Symptoms Musculoskeletal: No Symptoms Skin: No Symptoms Neurological: No Symptoms Psychological: No Symptoms Endocrine: No Symptoms Hematologic/Lymphatic: No Symptoms Immunological/Allergic: No Symptoms All Other Systems: Reviewed and Negative - Past Medical History Pertinent Past Medical History: Yes Neurological History: Seizures ENT History: No Pertinent History Cardiac History: No Pertinent History Respiratory History: No Pertinent History Endocrine Medical History: No Pertinent History Musculoskeletal History: No Pertinent History GI Medical History: No Pertinent History History: No Pertinent History Psycho-Social History: No Pertinent History Male Reproductive Disorders: No Pertinent History - Past Surgical History Past Surgical History: Yes Neuro Surgical History: No Pertinent History Cardiac: No Pertinent History Respiratory: No Pertinent History Gastrointestinal: No Pertinent History Genitourinary: No Pertinent History Musculoskeletal: No Pertinent History Male Surgical History: No Pertinent History Other Surgical History: foreign body removed from esophagus - Social History Smoking Status: Current every day smoker Exposure to second hand smoke: Yes Drug Use: none - Social Determinants of Health Will the patient participate in the screening: Declined to provide - Nursing Vital Signs Nursing Vital Signs: Initial Vital Signs Temperature 96.9 F 09/21/25 11:31 Pulse Rate 96 H 09/21/25 11:31 Respiratory Rate 18 09/21/25 11:31 Blood Pressure 158/98 09/21/25 11:31 O2 Sat by Pulse Oximetry 100 09/21/25 11:31 Pain Scale Pain Intensity 5 - Physical Exam General Appearance: no apparent distress, alert, anxiety, thin Eye Exam: bilateral eye: normal inspection, PERRL, EOMI Ear Exam: bilateral ear: auricle normal Nasal Exam: normal inspection, active bleeding Throat Exam: pharynx normal, dental tenderness (Right lower incisors), moist mucus membranes (Gingival swelling in the area of dental pain and dental caries right lower) Neck Exam: normal inspection, non-tender, supple, full range of motion Cardiovascular/Respiratory Exam: chest non-tender, no respiratory distress Abdominal Exam: non-tender Neurologic Exam: alert, 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, cooperative, upholstery mechanic II-XII nml as tested, nml cerebellar function, nml station & gait, sensation nml Skin Exam: normal color, warm, dry SpO2 Interpretation: normal SpO2: 100 O2 Delivery: Room Air - Course Nursing assessment & vital signs reviewed: Yes - Progress Progress: unchanged, pain not gone completely, re-examined Progress Note: 09/21/25 12:03 My medical decision making and the assignment of low complexity to this patient's medical issue today is based on review of the patient's past medical history, review of the patient's medication list, reviewed patient drug allergy list, history present illness and physical findings on examination. The workup in this patient does not necessitate radiographic or laboratory studies. Differential diagnosis includes but is not limited to dental caries, dental infection, gingivitis Counseled pt/family regarding: diagnosis, need for follow-up Medical Desision Making - Independent Historian Additional History obtained from: Family - Diagnostic Testing Diagnostic test were ordered, analyzed, and reviewed by me: No - Risk of complications Low Risk: Low risk of morbidity from additional dx testing or treatment The pt has a mod risk of morbidity or mortality based on: Need for prescription drug management - Departure Departure Disposition: Home Clinical Impression: Dental caries Condition: Stable Critical Care Time: No Referrals: DOCTOR,NO FAMILY [Primary Care Provider, UNKNOWN] - Follow up/PCP as directed Additional Instructions: Drink plenty of clear liquids. Use Tylenol and ibuprofen for pain control. Call a dentist that takes your insurance or arranges payment plan for you. Call them today, 09/21/2025. Take your antibiotics as prescribed Forms: Work/School Release Form Prescriptions: Amoxicillin 500 mg Cap [Amoxil 500 mg] 500 mg PO TID #30 cap
[2025-09-21] MEDS ORDERED: AMOXIL 500 MG ONE (12:04)
[2025-09-21] MEDS: AMOXIL 500 MG PO ONE (12:04)
[2025-09-21 12:33] VITALS: BP 141/101; PULSE 72; O2SAT 98
== END 2025-09-21 12:36 | disposition home or self-care (01) ==
LOC: ED 11:22
DX: K02.9 Dental caries, unspecified (principal); R68.84 Jaw pain; K08.89 Other specified disorders of teeth and supporting structures; Z72.0 Tobacco use; Z79.899 Other long term (current) drug therapy